=== PATIENT | male | born 1995 | race Caucasian/White ===

== ENCOUNTER 2022-03-30 17:26 | Emergency (ER) | payer BC ==
[2022-03-30] MEDS ORDERED: Diphtheria,Pertussis(Acell),Tetanus Vaccine 0.5 ML Syringe IM ONE (17:49)
[2022-03-30] MEDS ORDERED: Lactated Ringers 1,000 ML IV SCH ×2 (18:00→18:15)
[2022-03-30 18:10] LABS: ESTIMATED GFR > 60 mL/min (>60)
[2022-03-30] MEDS ORDERED: fentaNYL 100 MCG/2 ML SDV IVPUSH ONE ×2 (18:24→18:56)
[2022-03-30] MEDS ORDERED: Acetaminophen/HYDROcodone 325-10 MG Tab PO ONE (18:56)
== END 2022-03-30 20:14 | disposition home or self-care (01) ==
LOC: JD.ED 17:26
DX: S97.82XA Crushing injury of left foot, initial encounter (principal); S92.352A Displaced fracture of fifth metatarsal bone, left foot, initial encounter for closed fracture; Z23 Encounter for immunization; W23.1XXA Caught, crushed, jammed, or pinched between stationary objects, initial encounter
CPT/HCPCS: 36415; 73590; 73610; 73620; 80053; 85025; 86850; 86900; 86901; 90471; 90715; 96374; 96376; 99284; A9270; J3010; J7120; 99283

== ENCOUNTER 2023-05-05 12:21 | Emergency (ER) | payer BC, MEDICAID ==
[2023-05-05] MEDS ORDERED: Ondansetron 4 MG/2 ML SDV IVPUSH ONE ×2 (12:44→15:42)
[2023-05-05] MEDS ORDERED: HYDROmorphone 1 MG/ML Syringe IVPUSH ONE (12:44)
[2023-05-05] MEDS ORDERED: Sodium Chloride 0.9% 10 ML Syringe FLUSH PRN (12:44)
[2023-05-05] MEDS ORDERED: Sodium Chloride 0.9% 1,000 ML IV ONE (12:44)
[2023-05-05] MEDS ORDERED: Iopamidol 612 MG/ML 100 ML Bottle IVPUSH ONE ×2 (12:54→14:28)
[2023-05-05] MEDS ORDERED: Sodium Chloride 0.9% 10 ML Syringe FLUSH ONE (12:54)
[2023-05-05] MEDS ORDERED: Diatrizoate Meglumine/Diatrizoate Sodium 37% 120 ML Bottle PO ONE (12:54)
[2023-05-05 14:14] LABS: BASOPHILS ABSOLUTE AUTO 0.01 K/mm3 (0.01-0.08); BASOPHILS PERCENT AUTO 0.1 % (0.1-1.2); EOSINOPHILS PERCENT AUTO 0 (0.8-7.0); HEMATOCRIT 48.8 % (40.1-51.0); HEMOGLOBIN 16.1 gm/dl (13.7-17.5); IMMATURE GRAN ABSOLUTE AUTO 0.02 K/mm3 (0.00-0.10); IMMATURE GRAN PERCENT AUTO 0.2 % (<=1.0); LYMPHOCYTES ABSOLUTE AUTO 1.71 K/mm3 (1.32-3.57); MEAN CORPUSCULAR HEMOGLOBIN 28.1 pg (25.7-32.2); MEAN CORPUSCULAR VOLUME 85.3 fl (79.0-92.2); MEAN PLATELET VOLUME 11.2 fl (9.4-12.3); MONOCYTES ABSOLUTE AUTO 1.18 K/mm3 (0.30-0.82); MONOCYTES PERCENT AUTO 9.6 % (5.3-12.2); NEUTROPHILS ABSOLUTE AUTO 9.32 K/mm3 (1.78-5.38); NEUTROPHILS PERCENT AUTO 76.1 % (34.0-67.9); PLATELET COUNT,PLT 254 K/mm3 (163-337); RED BLOOD CELL COUNT 5.72 M/mm3 (4.63-6.08); WHITE BLOOD CELL COUNT,WBC 12.24 K/mm3 (4.23-9.07)
[2023-05-05 14:27] LABS: ALBUMIN 4.2 g/dl (3.4-5.0); ANION GAP 10.7 (5-15); BILIRUBIN TOTAL 0.8 mg/dL (0.2-1.0); BUN/CREATININE RATIO 14.5 (14-18); C-REACTIVE PROTEIN 0.6 mg/dL (<1.0); CALCIUM 9.6 mg/dL (8.5-10.1); CREATININE 1.1 mg/dL (0.7-1.3); EST CRCL DRUG DOSING (CG) 116.02 mL/min; POTASSIUM,K 3.7 mEq/L (3.5-5.1); PROTEIN TOTAL,TP 8.4 g/dl (6.4-8.2)
[2023-05-05 14:52] LABS: APPEARANCE,URINE CLEAR (Clear); BILIRUBIN,URINE NEGATIVE (Negative); COLOR,URINE DARK YELLOW (Yellow); GLUCOSE,URINE NEGATIVE (Negative); KETONES,URINE NEGATIVE (Negative); LEUKOCYTE ESTERASE,URINE NEGATIVE (Negative); NITRITE,URINE NEGATIVE (Negative); OCCULT BLOOD,URINE NEGATIVE (Negative); PH,URINE 7.5 (5.0-8.0); PROTEIN,URINE 1+ (Negative)
[2023-05-05 14:58] LABS: AMORPHOUS SEDIMENT,URINE FEW /hpf (NOT SEEN); BACTERIA,URINE FEW /hpf (FEW); EPITHELIAL CELLS,URINE 0-5 /hpf (0-5); MUCUS,URINE MODERATE /hpf (FEW); RBC,URINE 0-5 /hpf (0-5); WBC,URINE 0-5 /hpf (0-5)
[2023-05-05] MEDS ORDERED: Polyethylene Glycol/Electrolytes 4,000 ML Bottle PO ONE (15:10)
[2023-05-05] MEDS ORDERED: Ketorolac 30 MG/ML SDV IVPUSH ONE (15:19)
[2023-05-05] MEDS ORDERED: Phenol 1.4% Oral Spray 177 ML Bottle MUCMEM ONE (15:19)
[2023-05-05] MEDS ORDERED: Polyethylene Glycol 3350 Powder 17 GM Packet PO ONE (15:20)
== END 2023-05-05 16:00 | disposition home or self-care (01) ==
LOC: JD.ED 12:21
DX: K59.09 Other constipation (principal); F17.210 Nicotine dependence, cigarettes, uncomplicated; Z79.899 Other long term (current) drug therapy
CPT/HCPCS: 36415; 74177; 80053; 81001; 83690; 83735; 85025; 86140; 96361; 96374; 96375; 96376; 99284; A9270; J1170; J1885; J2405; J3490; J7030; Q9963; Q9967